=== PATIENT | male | born 1955 | race Two or more races ===

== ENCOUNTER 2017-04-23 16:30 | Emergency (ER) | payer MEDICAID ==
--- NOTE | 2017-04-23 18:18 | CT ---
Head CT Technique: Multiple axial sections through the brain were obtained. Intravenous contrast was not utilized. Comparison: No previous intracranial imaging. Findings: Ventricles along with basal cisterns and sulci with convexities are moderately to markedly prominent. No abnormal parenchymal densities are seen. No evidence of intracranial hemorrhage. No midline shift or mass effect is seen. Bone window settings were reviewed which shows the visualized sinuses to appear clear. No acute calvarial abnormality is seen. Impression: 1. Prominent atrophy. 2. No acute intracranial abnormality is identified. Diagnostic code #3
--- NOTE | 2017-04-23 18:22 | CR ---
Abdominal series: Supine and upright views of the abdomen were obtained as well as frontal view of the chest. Comparison: Prior chest x-ray of 02/09/17. Heart size is slightly enlarged. Tortuous thoracic aorta is seen. Lungs are clear. Mild increased stool is noted within the colon. Slightly air-filled loop of sigmoid colon is seen. Rectal gas is noted and this is likely incidental although follow-up recommended to make sure this does not represent an early sigmoid volvulus. No free air is seen. Bony structures are unremarkable. Impression: 1. Slightly dilated loop of sigmoid colon most likely normal variant but follow-up recommended (repeat abdomen study could be obtained in 24 hours) to make sure this does not represent an early sigmoid volvulus. 2. Mild increased stool within the colon. 3. Other incidental findings. Diagnostic code #3
[2017-04-23] MEDS ORDERED: Aspirin 325 MG Tab.EC PO ONE (18:29)
[2017-04-23] MEDS ORDERED: Sodium Chloride 0.9% 10 ML Syringe FLUSH PRN (18:30)
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
[2017-04-23] MEDS ORDERED: LORazepam 2 MG/ML SDV IVPUSH ONE (20:09)
[2017-04-23] MEDS ORDERED: Heparin Sodium/D5W 25,000 UNITS/500 ML BAG IV SCH (20:15)
[2017-04-23] MEDS ORDERED: LORazepam 2 MG/ML SDV IVPUSH STA (20:36)
[2017-04-23] MEDS ORDERED: Haloperidol Lactate 5 MG/ML SDV IVPUSH ONE (20:39)
== END 2017-04-23 21:30 ==
LOC: JD.ED 16:30
DX: I21.4 Non-ST elevation (NSTEMI) myocardial infarction (principal); T33.532A Superficial frostbite of left finger(s), initial encounter; F03.90 Unspecified dementia, unspecified severity, without behavioral disturbance, psychotic disturbance, mood disturbance, and anxiety; K59.00 Constipation, unspecified
CPT/HCPCS: 36415; 70450; 74022; 80053; 82553; 83880; 84484; 85025; 85610; 85730; 86140; 93005; 96365; 96375; 99285; J1630; J1644; J2060; J7050; 93010; 99284; A9270-GY